=== PATIENT | male | born 1990 ===

== ENCOUNTER 2020-07-12 08:18 | Outpatient (CLI) | payer OTHER | END 2020-07-12 23:59 | disposition home or self-care (01) | LOC: LAB 08:18 | PROVIDERS: ATTEND Specialist | DX: Z01.812 Encounter for preprocedural laboratory examination (principal); Z20.828 Contact with and (suspected) exposure to other viral communicable diseases | CPT/HCPCS: 87426; C9803; U0003 ==

== ENCOUNTER 2020-07-17 06:19 | Inpatient (IN) | payer OTHER ==
[~2020-07-17] VITALS: Ht 188 cm; Wt 81.6 kg
[2020-07-17] VITALS (11 sets, daily range): BP systolic 113–149; BP diastolic 58–93
--- NOTE | 2020-07-17 07:27 | NUR ---
DS RN OPENING NOTES RECEIVED PT IN BED AWAKE, A/O X 4. ABLE TO MAKE NEEDS KNOWN, DENIES PAIN OR DISCOMFORTS AT THIS TIME. PT FOR LEFT KNEE ARTHROSCOPY ANTERIOR CRUCIATE LEFT LIGAMENT ALLOGRAFT RECONSTRUCTION THIS MORNING. ON RA, BREATHING EVEN AND UNLABORED. IV ACCESS ON LFA G#22 INTACT AND PATENT, NO S/S OF INFILTRATION NOTED. SAFETY PRECAUTIONS IN PLACE: BED IN LOWEST LOCKED POSITION, CALL LIGHT WITHIN REACH, BREAKS ON, SIDE RAILS UP. WILL CONTINUE TO MONITOR PT ACCORDINGLY.
--- NOTE | 2020-07-17 07:57 | NUR ---
RN NOTES PT WHEELED VIA GURNEY TO SURGERY BY Elton HOLLINGSWORTH JUST NOW.
[2020-07-17] MEDS ORDERED: HYDROMORPHONE INJ 2 MG/ML DISP.SYRIN ONE (09:11)
[2020-07-17] MEDS ORDERED: SCOPOLAMINE PATCH 1 MG/72HR TD ONE (09:11)
[2020-07-17] MEDS ORDERED: FENTANYL PF 100MCG/2ML AMPUL ONE (09:12)
[2020-07-17] MEDS ORDERED: HYDR-3980 PO (09:12)
[2020-07-17] MEDS ORDERED: BUPIVACAINE 0.5 % PF 150 MG/30 ML VIAL ONE (09:43)
[2020-07-17] MEDS ORDERED: GLYCOPYRROLATE 0.2 MG/ML VIAL ONE (11:59)
[2020-07-17] MEDS ORDERED: HYDROCODONE/APAP 5/325MG TABLET PO PRN ×2 (12:30→16:30)
[2020-07-17] MEDS ORDERED: ONDANSETRON HCL/PF 4 MG/2 ML VIAL IVP PRN (12:30)
--- NOTE | 2020-07-17 12:42 | NUR ---
RN NOTES PT RETURNED TO UNIT VIA GURNEY AT 1230 FROM SURGERY ACCOMPANIED BY AXEL SERRANO. PT IS S/P LEFT KNEE ARTHROSCOPY ANTERIOR AND LEFT LIGAMENT ALLOGRAFT RECONSTRUCTION BY DR SWEENEY. PT IS A/O X4. ABLE TO VERBALIZED NEEDS AND THAT PAIN ON HIS LEFT KNEE IS BEARABLE AT THIS TIME. LEFT KNEE WITH DRESSING C/D/I WRAPPED WITH REED BANDAGE AND IMMOBILIZER IN PLACE. ON ROOM AIR, BREATHING EVEN AND UN LABORED. V/S CHECKED: BP 149/93, P 64, R 18, T 97.8 AND SP02 100%. ALL POST-OP ORDERS RECEIVED AND CARRIED OUT. INCENTIVE SPIROMETER GIVEN TO PT,INSTRUCTED ON HOW TO USE IT AND PT VERBALIZED UNDERSTANDING. SAFETY MEASURES IN[PLACE: BED IN LOWEST LOCKED POSITION WITH SR UP X2. ALLAN LIGHT WITHIN REACH. WILL CONTINUE TO MONITOR.
[2020-07-17] MEDS ORDERED: MENTHOL/CETYLPYRD (CEPACOL) 1 LOZ LOZENGE PO PRN (15:30)
[2020-07-17] MEDS ORDERED: MAG HYDROX/AL HYDROX/SIMETH 30 ML UDC PO PRN (15:30)
[2020-07-17] MEDS ORDERED: diphenhydrAMINE HCL 25 MG CAPSULE PO PRN (15:30)
[2020-07-17] MEDS ORDERED: ACETAMINOPHEN 325 MG TABLET PO PRN (15:30)
--- NOTE | 2020-07-17 15:39 | NUR ---
RN DISCHARGED NOTES PT DISCHARGED HOME IN STABLE CONDITION. A/O X3, [place] SPEAKING. ALL NEEDS AND CARE ATTENDED WELL. V/S TAKEN, STABLE AND RECORDED. PHOTOS OF SKIN ISSUES TAKEN AND FILED ON CHART. PIV REMOVED WITH NO BLEEDING NOTED, DRY DRESSING APPLIED TO SITE. NAME [facility] REMOVED. HEALTH TEACHINGS/DISCHARGE INSTRUCTIONS GIVEN TO PT TRANSLATED IN [place] BY [place] SPEAKING STAFF AND PT VERBALIZED UNDERSTANDING. PT LEFT UNIT AMBULATORY ACCOMPANIED BY PAULINE SPRINGER TO A WAITING [facility] OUTSIDE OF THE HOSPITAL LOBBY AT 1535. PT'S PARTNER NAMED PACO CALLED AND STATED THAT SHE WILL BE WAITING FOR PT IN HIS APARTMENT. MD AND CHARGE NURSE AWARE OF DISCHARGE. Addendum: 07/17/20 at 1859 by RODY DEGLADO RN ERROR: RN DISCHARGED NOTES IS FOR ANOTHER PATIENT.
--- NOTE | 2020-07-17 19:22 | NUR ---
MS RN OPENING NOTES PATIENT AWAKE IN BED. A/OX4. STABLE ON RA. PATIENT DENIES SOB; BREATHING IS EVEN AND UNLABORED. PATIENT C/O SLIGHT PAIN ON LEFT KNEE HOWEVER STATES THAT PAIN IS TOLERABLE AT THIS TIME. LEFT LEG IMMOBILIZER PRESENT; SURGICAL DRESSING DRY AND INTACT; LEG OFFLOADED WITH PILLOWS. IV PRESENT ON LEFT FA, SIZE 22, INTACT & PATENT, HEP LOCKED. SAFETY MEASURES IN PLACE AND PATIENT'S NEEDS MET. BED LOCKED, SIDE RAILS X2, CALL LIGHT WITHIN REACH. WILL CONTINUE TO MONITOR.
--- NOTE | 2020-07-17 19:32 | NUR ---
MS RN CLOSING NOTES PT RESTING IN BED WATCHING TV AT THIS TIME. A/O X4. ABLE TO MAKE NEEDS KNOWN. LEFT KNEE WITH DRESSING C/D/I WRAPPED WITH REED BANDAGE AND IMMOBILIZER IN PLACE. ON ROOM AIR, BREATHING EVEN AND UN LABORED, NO SOB NOTED. IV ACCESS ON LFA G#22 INTACT AND PATENT. ALL NEEDS AND CARE ATTENDED WELL. SAFETY MEASURES IN[PLACE: BED IN LOWEST LOCKED POSITION WITH SR UP X2. ALLAN LIGHT WITHIN REACH. ENDORSED TO CUSTOMER SERVICE OFFICER NURSE BARBARA FOR NELA.
[2020-07-17] MEDS: HYDROMORPHONE 1 MG/1 ML DISP.SYRIN IV PRN (21:07)
[2020-07-18] MEDS: HYDROMORPHONE 1 MG/1 ML DISP.SYRIN IV PRN ×2 (01:17→04:17)
[2020-07-18] MEDS ORDERED: HYDROCODONE/APAP 10/325MG TABLET PO ONE (04:26)
[2020-07-18] MEDS ORDERED: HYDROCODONE/APAP 10/325MG TABLET PO PRN (04:30)
--- NOTE | 2020-07-18 07:00 | NUR ---
MS RN CLOSING NOTES PATIENT SLEEPING, EASY TO AWAKEN. A/OX4. ON RA; NO S/S OF ACUTE RESPIRATORY DISTRESS; BREATHING IS EVEN AND UNLABORED. NO C/O PAIN. LEFT LEG IMMOBILIZER PRESENT; SURGICAL DRESSING DRY AND INTACT. IV PRESENT ON LEFT FA, SIZE 22, INTACT & PATENT, HEP LOCKED. SAFETY MEASURES IN PLACE AND PATIENT'S NEEDS MET. BED LOCKED, SIDE RAILS X2, CALL LIGHT WITHIN REACH. WILL ENDORSE TO DAY SHIFT RN PLAN OF CARE.
[2020-07-18 08:00] VITALS: BP 134/73
--- NOTE | 2020-07-18 08:00 | NUR ---
MS RN OPENING NOTES PATIENT AWAKE IN BED. A/OX4. STABLE ON RA. PATIENT DENIES SOB; BREATHING IS EVEN AND UNLABORED. PATIENT C/O SLIGHT PAIN ON LEFT KNEE HOWEVER STATES THAT PAIN IS TOLERABLE AT THIS TIME. LEFT LEG IMMOBILIZER PRESENT; SURGICAL DRESSING DRY AND INTACT; LEG OFFLOADED WITH PILLOWS. IV PRESENT ON LEFT FA, SIZE 22, INTACT & PATENT, HEP LOCKED. SAFETY MEASURES IN PLACE AND PATIENT'S NEEDS ATTENDED. BED LOCKED, SIDE RAILS X2, CALL LIGHT WITHIN REACH. WILL CONTINUE TO MONITOR.
[2020-07-18] MEDS ORDERED: INFLUENZA VACCINE 2020-21 0.5 ML DISP.SYRIN IM ONE (09:30)
--- NOTE | 2020-07-18 15:40 | NUR ---
DISCHARGED PT HOME WITH STABLE V/S PICKED UP BY HIS MOM VIA PRIVATE CAR.IV H/L REMOVED TO LFA WITHOUT BLEEDING NOTED. PT TOLERATED WELL.DISCHARGED PT WITH HIS CRUTCHES AND ALL BELONGINGS DENYING ANY PAIN OR DISTRESS.DISCHARGE INSTRUCTIONS AND PRESCRIPTION PROVIDED TO THE PT.INSTRUCTED TO FOLLOW UP WITH [facility]THO IN ONE WEEK.
== END 2020-07-18 15:30 | disposition home or self-care (01) | DRG 489 ==
LOC: DS 06:19 → MED 06:20
PROC: 0MRP4KZ Replacement of Left Knee Bursa and Ligament with Nonautologous Tissue Substitute, Percutaneous Endoscopic Approach (ICD-10-PCS; principal; 2020-07-17)
DX: S83.512A Sprain of anterior cruciate ligament of left knee, initial encounter (principal); X58.XXXA Exposure to other specified factors, initial encounter; Y93.9 Activity, unspecified; Y92.89 Other specified places as the place of occurrence of the external cause
CPT/HCPCS: 87081-TC; 97112-TC; 97116-TC; 97530-TC; A4217; C1713; G0378; J0690; J1100; J1170; J1885; J2405; J2704; J3010; J3490; Q2036